=== PATIENT | female | born 1965 | race Caucasian/White ===

== ENCOUNTER 2017-10-05 20:25 | Emergency (ER) | payer OTHER ==
[~2017-10-05] VITALS: Ht 160 cm; Wt 69.0 kg
[2017-10-05 20:34] VITALS: BP 175/97; PULSE 82; RESP 18; TEMP 98.1; O2SAT 98
--- NOTE | 2017-10-05 20:44 | PD ---
HPI Chief Complaint: Hypertension Time Seen by Provider: 20:43 Travel History International Travel<30 days: No Contact w/Intl Traveler<30days: No Traveled to known affect area: No History of Present Illness HPI 52-year-old female presents to the ED via EMS for evaluation of intermittent edema of bilateral lower extremities, right greater than left. Edema is improved by elevating the legs, worsened by ambulation. Also complains of right hip pain. Pain is rated 6/10, worsened by weightbearing. Patient can identify no acute injury to the area. She denies fever, chills, chest pain, palpitations, shortness of breath, abdominal pain, dysuria. Patient denies chronic medical conditions. 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 She states that she had the left vein stripped. She is pack per day smoker since age 17. She states she is adopted and has no idea of her family history. She does not have primary care. PFSH Past Medical History Cancer: Yes (CERVICAL) Deep Vein Thrombosis: Yes (REMOVED FROM LEFT LEG) ?: Not Past Surgical History Surgical History: No Previous Surgery Social History Alcohol Use: Yes (OCCASSIONALLY ) Tobacco Use: Yes (1 PPD ) Substance Use: No Allergies-Medications Reported Meds & Prescriptions Reported Meds & Active Scripts Active Naprosyn (Naproxen) 500 Mg Tab 500 Mg PO BID 5 Days Review of Systems Except as stated in HPI: all other systems reviewed are Neg Physical Exam Narrative GENERAL: Well-nourished, well-developed white female no acute distress. SKIN: Focused skin assessment warm/dry. HEAD: Normocephalic. EYES: No scleral icterus. No injection or drainage. NECK: Supple, trachea midline. No JVD or lymphadenopathy. CARDIOVASCULAR: Regular rate and rhythm without murmurs, gallops, or rubs. RESPIRATORY: Breath sounds clear and equal bilaterally. No accessory muscle use. GASTROINTESTINAL: Abdomen soft, non-tender, nondistended. Active bowel sounds. MUSCULOSKELETAL: No cyanosis. FOCUSED RIGHT LOWER EXTREMITY EXAM: 2+ DP pulse. Homans sign positive. Tender to palpation of the anterior lateral hip. Trace edema of the right lower extremity, worse in the foot. 5/5 strength in all muscle groups. Patient retains full, active, painless R OM. Neurovascularly intact distally. BACK: Nontender without obvious deformity. No CVA tenderness. Data Data Last Documented VS Vital Signs Date Time Temp Pulse Resp B/P (MAP) Pulse Ox O2 Delivery O2 Flow Rate FiO2 10/05/17 21:41 10/05/17 21:40 75 16 96 Room Air 10/05/17 20:34 98.1 Orders Orders Complete Blood Count With Diff (10/05/17 20:41) Basic Metabolic Panel (Bmp) (10/05/17 20:41) Urinalysis - C+S If Indicated (10/05/17 20:41) Hip, Uni(Ap&Lat) Wo Ap Pelvis (10/05/17 20:41) Us Leg Venous Doppler (10/05/17 20:44) Ed Discharge Order (10/05/17 21:37) Labs Laboratory Tests Test 10/05/17 20:50 White Blood Count 11.1 TH/MM3 Red Blood Count 4.88 MIL/MM3 Hemoglobin 14.3 GM/DL Hematocrit 42.8 % Mean Corpuscular Volume 87.6 FL Mean Corpuscular Hemoglobin 29.3 PG Mean Corpuscular Hemoglobin Concent 33.5 % Red Cell Distribution Width 14.6 % Platelet Count 256 TH/MM3 Mean Platelet Volume 9.1 FL Neutrophils (%) (Auto) 60.0 % Lymphocytes (%) (Auto) 30.7 % Monocytes (%) (Auto) 5.0 % Eosinophils (%) (Auto) 3.5 % Basophils (%) (Auto) 0.8 % Neutrophils # (Auto) 6.7 TH/MM3 Lymphocytes # (Auto) 3.4 TH/MM3 Monocytes # (Auto) 0.6 TH/MM3 Eosinophils # (Auto) 0.4 TH/MM3 Basophils # (Auto) 0.1 TH/MM3 CBC Comment DIFF FINAL Differential Comment Urine Color COLORLESS Urine Turbidity CLEAR Urine pH 5.5 Urine Specific [place] 1.001 Urine Protein NEG mg/dL Urine Glucose (UA) NEG mg/dL Urine Ketones NEG mg/dL Urine Occult Blood NEG Urine Nitrite NEG Urine Bilirubin NEG Urine Urobilinogen LESS THAN 2.0 MG/DL Urine Leukocyte Esterase NEG Urine RBC LESS THAN 1 /hpf Urine WBC LESS THAN 1 /hpf Urine Squamous Epithelial Cells 2 /hpf Microscopic Urinalysis Comment CULT NOT INDICATED Blood Urea Nitrogen 10 MG/DL Creatinine 0.67 MG/DL Random Glucose 87 MG/DL Calcium Level 9.1 MG/DL Sodium Level 141 MEQ/L Potassium Level 4.1 MEQ/L Chloride Level 110 MEQ/L Carbon Dioxide Level 21.9 MEQ/L Anion Gap 9 MEQ/L Estimat Glomerular Filtration Rate 92 ML/MIN [facility] Medical Decision Making Medical Screen Exam Complete: Yes Emergency Medical Condition: Yes Differential Diagnosis Dependent edema versus DVT versus osteoarthritis versus bursitis versus other Narrative Course 52-year-old female presents to the ED via EMS for evaluation of intermittent edema of bilateral lower extremities, right greater than left. Edema is improved by elevating the legs, worsened by ambulation. Also complains of right hip pain. Pain is rated 6/10, worsened by weightbearing. Patient can identify no acute injury to the area. 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 She states that she had the left vein stripped. She is pack per day smoker since age 17. She states she is adopted and has no idea of her family history. Patient hyper intensive on presentation. Physical exam reveals trace edema in the bilateral lower extremities, worse in the right. She also has some tenderness to palpation of the anterior lateral right hip. X-ray of the hip reveals no acute bony injury per radiology read. Ultrasound of the right lower extremity reveals no evidence of DVT. No concerning abnormalities a CBC, CMP, UA. Suspect dependent edema, possible bursitis of the right hip. Patient' s prescribed a short course of anti-inflammatories, instructed to follow-up with the [facility] and the orthopedist. I discussed the results the workup with the patient. She is agreeable to care plan. The patient stable discharged home. Diagnosis Primary Impression: Dependent edema Additional Impression: Right hip pain Referrals: [facility] Orthopedist Additional Instructions: Rest, hydrate. Resume normal, gentle activities as tolerated. Take anti-inflammatories as prescribed. Wear compression stockings when performing daily activities. Elevate the legs as possible. Follow-up with the [facility] to establish primary care, have your BP evaluated. Follow-up with the orthopedist regarding chronic hip pain. Return to the ED for worsening symptoms or any urgent or emergent medical condition. Scripts Naproxen (Naprosyn) 500 Mg Tab 500 MG PO BID for 5 Days, #10 TAB 0 Refills Prov: Jorge Driver MD 10/05/17 Disposition: DISCHARGE HOME Condition: Stable Brielle Mims Oct 05, 2017 20:44
--- NOTE | 2017-10-05 21:07 | RADRPT ---
EXAM DATE/TIME: 10/05/2017 20:58 [facility] COMPARISON: No previous studies available for comparison. INDICATIONS : Right hip pain with no known injury. MEDICAL HISTORY : None. SURGICAL HISTORY : None. ENCOUNTER: Initial ACUITY: 4 - 6 days PAIN SCORE: 10/10 LOCATION: Right hip. FINDINGS: A two view examination of the right hip was performed. The primary and secondary trabecular pattern of the femoral neck is intact. The hip joint is of normal width without significant sclerosis or bon y hypertrophy. The acetabulum is grossly intact. CONCLUSION: Unremarkable exam. Darrion Coe MD on October 05, 2017 at 21:04 Board Certified Radiologist. This report was verified electronically.
[2017-10-05 21:15] LABS: BILIRUBIN, URINE NEG (NEG); BLOOD, URINE NEG (NEG); GLUCOSE,URINE NEG (NEG); KETONE, URINE NEG (NEG); NITRITE,URINE NEG (NEG); PH, URINE 5.5 (5.0-8.5); SQUAMOUS EPITHELIAL CELL URINE 2 /hpf (0-5); URINE COLOR COLORLESS (YELLW/STRAW); URINE LEUKOCYTE ESTERASE NEG (NEG)
--- NOTE | 2017-10-05 21:29 | RADRPT ---
EXAM DATE/TIME: 10/05/2017 21:01 [facility] COMPARISON: No previous studies available for comparison. INDICATIONS : Right leg swelling and pain. MEDICAL HISTORY : Deep venous thrombosis. Cervical cancer. SURGICAL HISTORY : Left leg vein stripping. Cervical laser surgery. ENCOUNTER: Initial ACUITY: 1 day PAIN SCORE: 1/10 LOCATION: Right leg. TECHNIQUE: Venous ultrasound of the leg was performed from the inguinal ligament to the proximal calf. Real-venancio e, color Doppler and spectral tracing, compression and augmentation techniques were used. FINDINGS: There is normal compressibility of the deep venous system from the inguinal region to the proximal ca lf. No echogenic clot is seen in the lumen of the common femoral, femoral, popliteal, and posterior tibial veins. There is a normal response of the venous system to proximal and distal augmentation an d respiration. CONCLUSION: Negative exam with no evidence of deep venous thrombosis. Darrion Coe MD on October 05, 2017 at 21:26 Board Certified Radiologist. This report was verified electronically.
[2017-10-05 21:33] LABS: AUTOMATED NEUTROPHIL # 6.7 TH/MM3 (1.8-7.7); BASOPHIL # 0.1 TH/MM3 (0-0.2); BASOPHIL % 0.8 % (0.0-2.0); EOSINOPHIL # 0.4 TH/MM3 (0-0.4); EOSINOPHIL % 3.5 % (0.0-4.0); HEMATOCRIT 42.8 % (35.0-46.0); HEMOGLOBIN 14.3 GM/DL (11.6-15.3); LYMPH % 30.7 % (9.0-44.0); LYMPHOCYTE # 3.4 TH/MM3 (1.0-4.8); MEAN CELL VOLUME 87.6 FL (80.0-100.0); MEAN CORPUSCULAR HEMOGLOBIN 29.3 PG (27.0-34.0); MEAN CORPUSCULAR HGB CONC 33.5 % (32.0-36.0); MEAN PLATELET VOLUME 9.1 FL (7.0-11.0); MONOCYTE # 0.6 TH/MM3 (0-0.9); PLATELET COUNT 256 TH/MM3 (150-450); RED BLOOD COUNT 4.88 MIL/MM3 (4.00-5.30); RED CELL DISTRIBUTION WIDTH 14.6 % (11.6-17.2); WHITE BLOOD COUNT 11.1 TH/MM3 (4.0-11.0)
[2017-10-05 21:35] LABS: BICARBONATE 21.9 MEQ/L (21.0-32.0); CALCIUM 9.1 MG/DL (8.5-10.1); CREATININE 0.67 MG/DL (0.50-1.00)
[2017-10-05] MEDS ORDERED: NAPR500 PO (21:38)
[2017-10-05 21:40] VITALS: BP 139/71; PULSE 75; RESP 16; O2SAT 96
== END 2017-10-05 21:54 | disposition home or self-care (01) ==
LOC: NEPE 20:25
DX: R60.9 Edema, unspecified (principal); M25.551 Pain in right hip; M79.604 Pain in right leg; F17.210 Nicotine dependence, cigarettes, uncomplicated
CPT/HCPCS: 73502; 80048; 81001; 85025; 93971; 99284